=== PATIENT | female | born 1960 | race Caucasian/White ===

== ENCOUNTER 2016-08-16 10:04 | Emergency (ER) | payer OTHER ==
[~2016-08-16] VITALS: Ht 149.9 cm; Wt 75.3 kg
[2016-08-16 10:28] VITALS: BP 154/85
[2016-08-16] MEDS ORDERED: VASOTEC5 MG PO (10:28)
[2016-08-16] MEDS ORDERED: GLUCOTROL XL10 M1 PO (10:28)
[2016-08-16] MEDS ORDERED: GLUCOPHAGE1000 MG PO (10:28)
[2016-08-16] MEDS ORDERED: INVOKANA100 MG PO (10:28)
--- NOTE | 2016-08-16 10:35 | NUR ---
Patient ambulated to bed 07.
--- NOTE | 2016-08-16 10:42 | NUR ---
Dr. Heart evaluating patient at bedside.
--- NOTE | 2016-08-16 10:44 | NUR ---
PATIENT PRESENTS TO ED WITH RIGHT WRIST PAIN X2 DAYS. HX HTN, DM. DENIES N/V/D; SKIN IS PINK/WARM/DRY; AAOX4 WITH EVEN AND STEADY GAIT; LUNGS CLEAR BL; HR EVEN AND REGULAR; PT DENIES ANY FEVER, CP, SOB, OR COUGH AT THIS TIME; PATIENT STATES PAIN OF 8/10 AT THIS TIME; VSS; PATIENT POSITIONED FOR COMFORT; HOB ELEVATED; BEDRAILS UP X2; BED DOWN. ER MD MADE AWARE OF PT STATUS.
--- NOTE | 2016-08-16 10:59 | NUR ---
Patient to CT via wheelchair per tech.
--- NOTE | 2016-08-16 11:14 | NUR ---
Patient back from XRAY via wheelchair per tech.
[2016-08-16 12:08] VITALS: BP 154/85
== END 2016-08-16 12:09 | disposition home or self-care (01) ==
LOC: MED 10:04
DX: S63.501A Unspecified sprain of right wrist, initial encounter (principal); I10 Essential (primary) hypertension; E11.9 Type 2 diabetes mellitus without complications; X50.1XXA Overexertion from prolonged static or awkward postures, initial encounter; Y93.89 Activity, other specified; Y92.89 Other specified places as the place of occurrence of the external cause; Y99.8 Other external cause status